=== PATIENT | female | born 1990 | race American Indian/Alaskan Native ===

== ENCOUNTER 2019-01-18 22:31 | Emergency (ER) | payer MEDICAID | END 2019-01-18 22:40 | disposition left against medical advice (07) | LOC: ED 22:31 | DX: R51 Headache (principal); Z53.21 Procedure and treatment not carried out due to patient leaving prior to being seen by health care provider ==

== ENCOUNTER 2019-03-27 12:04 | Emergency (ER) | payer MEDICAID ==
[2019-03-27 12:21] VITALS: BP 123/82
--- NOTE | 2019-03-27 12:22 | Emergency Department Report ---
Blank Doc - Documentation Documentation: 28 y/o female under care of Dr. 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 Has used 16 Pads since starting. No pain the last 2 days. No feverish or dysuria. Plan Hcg quant and cbc
[2019-03-27 13:04] LABS: Basophils # (Auto) 0.1 K/mm3 (0.0-0.1); Basophils % (Auto) 1.1 % (0.0-1.8); Eosinophils # (Auto) 0.3 K/mm3 (0.0-0.4); Eosinophils % (Auto) 3.5 % (0.0-4.3); Hematocrit 37.6 % (30.3-42.9); Hemoglobin 12.9 gm/dl (10.1-14.3); Lymphocytes # (Auto) 2.9 K/mm3 (1.2-5.4); Lymphocytes % (Auto) 36.8 % (13.4-35.0); Mean Corpuscular HGB Conc 34 % (30-34); Mean Corpuscular Volume 87 fl (79-97); Monocytes # (Auto) 0.4 K/mm3 (0.0-0.8); Monocytes % (Auto) 4.5 % (0.0-7.3); Platelet Count 201 K/mm3 (140-440); Red Blood Count 4.31 M/mm3 (3.65-5.03); Red Cell Distribution Width 15.2 % (13.2-15.2)
--- NOTE | 2019-03-27 14:35 | Ultrasound Report ---
PROCEDURE: US PELVIC COMPLETE, US TRANSVAGINAL TECHNIQUE: Transabdominal and transvaginal pelvic ultrasound. HISTORY: Vaginal bleeding. Spontaneous portion. COMPARISONS: None currently available. FINDINGS: Uterus: 8.9 x 5.9 x 7.1 cm. Heterogeneous. Lesion at the fundus measures 1.1 x 1.6 x 1.5 cm. Endometrium: Heterogeneously echogenic. 15.8 mm. Thickening. Right ovary: 2.6 x 1.8 x 2.4 cm. Hypoechoic complex cyst measures 2.1 x 1.8 x 2.0 cm. Left ovary: 3.3 x 1.8 x 2.5 cm. Mixed density complex cyst measures 1.0 x 0.7 x 1.0 cm. No adnexal lesions. No significant free fluid. IMPRESSION: * No intrauterine . * Complex cystic lesions in both ovaries. Nonspecific. Differential diagnosis does include ectopic p regnancy, corpus luteal cyst, and hemorrhagic cyst. * Thickened heterogeneous endometrium may be related to or hyperplasia. * Fibroid. This document is electronically signed by Adolfo Vo MD., March 27 2019 02:33:43 PM ET
--- NOTE | 2019-03-27 15:06 | Emergency Department Report ---
ED HPI - General Chief complaint: Vaginal Bleeding Stated complaint: BLOOD IN URINE Time Seen by Provider: 03/27/19 12:20 Source: patient Mode of arrival: Ambulatory Limitations: No Limitations - History of Present Illness Initial comments: Patient is a 28-year-old female who presents to the emergency Department with complaints of vaginal bleeding that began 4 days ago. She states that she was told at 6 weeks of she had IUFD by her FORENSIC CHEMIST Dr. Del Castillo. she states that she began having bleeding with some clots present 4 days ago. she denies any abd pain, vaginal discharge, dysuria, or fever. she states she has had a miscarriage in the past and states she had bleeding for approximately 2 days. /P:3/A:1. does not take any daily medications. - Related Data Allergies Allergy/AdvReac Type Severity Reaction Status Date / Time acetaminophen [From Vicodin] Allergy Hives Verified 03/27/19 12:06 hydrocodone [From Vicodin] Allergy Hives Verified 03/27/19 12:06 ED Review of Systems ROS: Stated complaint: BLOOD IN URINE Other details as noted in HPI Comment: All other systems reviewed and negative ED Past Medical Hx - Past Medical History Additional medical history: herniated disc - Social History Smoking Status: Current Every Day Smoker Substance Use Type: Other ED Physical Exam - General Limitations: No Limitations General appearance: alert, in no apparent distress - Head Head exam: Present: atraumatic, normocephalic - Eye Eye exam: Present: normal appearance, PERRL - ENT ENT exam: Present: mucous membranes moist - Respiratory Respiratory exam: Present: normal lung sounds bilaterally. Absent: respiratory distress, wheezes, rales, rhonchi, stridor, chest wall tenderness, accessory muscle use, decreased breath sounds, prolonged expiratory - Cardiovascular Cardiovascular Exam: Present: regular rate, normal rhythm, normal heart sounds. Absent: systolic murmur, diastolic murmur, rubs, gallop - GI/Abdominal GI/Abdominal exam: Present: soft, normal bowel sounds. Absent: distended, tenderness, guarding, rebound, rigid - Back Exam Back exam: Absent: CVA tenderness (R), CVA tenderness (L) - Neurological Exam Neurological exam: Present: alert, oriented X3 - Psychiatric Psychiatric exam: Present: normal affect, normal mood - Skin Skin exam: Present: warm, dry, intact ED Course Vital Signs 03/27/19 12:19 Temperature 98.2 F Pulse Rate 86 Respiratory 18 Rate Blood Pressure 123/82 O2 Sat by Pulse 100 Oximetry ED Medical Decision Making - Lab Data Result diagrams: 03/27/19 12:45 Lab Results 03/27/19 03/27/19 Range/Units 12:45 12:45 WBC 7.8 (4.5-11.0) K/mm3 RBC 4.31 (3.65-5.03) M/mm3 Hgb 12.9 (10.1-14.3) gm/dl Hct 37.6 (30.3-42.9) % MCV 87 (79-97) fl MCH 30 (28-32) pg MCHC 34 (30-34) % RDW 15.2 (13.2-15.2) % Plt Count 201 (140-440) K/mm3 Lymph % (Auto) 36.8 H (13.4-35.0) % [place] % (Auto) 4.5 (0.0-7.3) % Eos % (Auto) 3.5 (0.0-4.3) % Baso % (Auto) 1.1 (0.0-1.8) % Lymph # 2.9 (1.2-5.4) K/mm3 [place] # 0.4 (0.0-0.8) K/mm3 Eos # 0.3 (0.0-0.4) K/mm3 Baso # 0.1 (0.0-0.1) K/mm3 Seg Neutrophils % 54.1 (40.0-70.0) % Seg Neutrophils # 4.2 (1.8-7.7) K/mm3 HCG, Quant 404.2 H (0-4) mIU/mL - Radiology Data Radiology results: report reviewed Ordering Physician: KAE HODGE Date of Service: 03/27/19 Procedure(s): US transvaginal Accession Number(s): [id number] cc: KAE HODGE ADDENDUM ADDENDUM: Thickened heterogeneous endometrium may be related to , hyperplasia, or retained products of conception. Please correlate with bilateral spontaneous . 03/27/2019 at 1136 PT: Adolfo Johnson MD, discussed the findings over the phone with Daylin PAL. This document is electronically signed by Adolfo Marvin MD., March 27 2019 02:39:13 PM ET Addendum Transcribed By: TYM Addendum Dictated By: ADOLFO MARVIN MD Addendum Electronically Authenticated By: ADOLFO MARVIN MD Addendum Signed Date/Time: 03/27/19 1441 DD/ TD/TT: 03/27/19 PROCEDURE: US PELVIC COMPLETE, US TRANSVAGINAL TECHNIQUE: Transabdominal and transvaginal pelvic ultrasound. HISTORY: Vaginal bleeding. Spontaneous portion. COMPARISONS: None currently available. FINDINGS: Uterus: 8.9 x 5.9 x 7.1 cm. Heterogeneous. Lesion at the fundus measures 1.1 x 1.6 x 1.5 cm. Endometrium: Heterogeneously echogenic. 15.8 mm. Thickening. Right ovary: 2.6 x 1.8 x 2.4 cm. Hypoechoic complex cyst measures 2.1 x 1.8 x 2.0 cm. Left ovary: 3.3 x 1.8 x 2.5 cm. Mixed density complex cyst measures 1.0 x 0.7 x 1.0 cm. No adnexal lesions. No significant free fluid. IMPRESSION: * No intrauterine . * Complex cystic lesions in both ovaries. Nonspecific. Differential diagnosis does include ectopic , corpus luteal cyst, and hemorrhagic cyst. * Thickened heterogeneous endometrium may be related to or hyperplasia. * Fibroid. This document is electronically signed by Adolfo Marvin MD., March 27 2019 02:33:43 PM ET Transcribed By: TYM Dictated By: ADOLFO MARVIN MD Electronically Authenticated By: ADOLFO MARVIN MD Signed Date/Time: 03/27/19 1435 DD/ 40 TD/TT: 03/27/19 1354 - Medical Decision Making Patient is a 28-year-old female who presents to the emergency Department with complaints of vaginal bleeding that began 4 days ago. She states that she was told at 6 weeks of she had IUFD by her FORENSIC CHEMIST Dr. Del Castillo, she states that she kept going into her office weekly and was told no heart beat, she states that she then "stopped going." she states that she began having bleeding with some clots present 4 days ago. she denies any abd pain, vaginal discharge, dysuria, or fever. she states she has had a miscarriage in the past and states she had bleeding for approximately 2 days. /P:3/A:1. does not take any daily medications. vitals are normal. labs are normal. H/H are normal. hcg quant is 400. NO abd tenderness on exam. US shows: * No intrauterine . * Complex cystic lesions in both ovaries. Nonspecific. Differential diagnosis does include ectopic , corpus luteal cyst, and hemorrhagic cyst. * Thickened heterogeneous endometrium may be related to or hyperplasia. * Fibroid. spoke with Dr. Kapadia regarding pt and results advised to have pt have repeat qu ant in 2 days and follow up with FORENSIC CHEMIST. discussed with pt that she would need a repeat hcg quant in the next 2 days. discussed with pt that she needs to follow up with an FORENSIC CHEMIST in the next 2-3 days for further eval of her ovarian cysts. pt states "she would not be doing either of those things." advised pt strongly against that and discussed the risks of not doing so. advised to return to the ED immediately for any new or worsening symptoms. Critical care attestation.: If time is entered above; I have spent that time in minutes in the direct care of this critically ill patient, excluding procedure time. ED Disposition Clinical Impression: Spontaneous Ovarian cyst Qualifiers: Laterality: bilateral Qualified Code(s): N83.201 - Unspecified ovarian cyst, right side Disposition: TO HOME OR SELFCARE Is pt being admited?: No Does the pt Need Aspirin: No Condition: Stable Instructions: Spontaneous Miscarriage (ED), Ovarian Cyst (ED) Additional Instructions: Please follow up with an FORENSIC CHEMIST in the next 2 days. will need a repeat hcg quant in the next 2 days. today your hcg quant was 404. may come back to the emergency room for repeat if unable to see FORENSIC CHEMIST. return to the emergency room for any new or worsening symptoms. Referrals: STERLING JIMENEZ MD [Primary Care Provider] - 2-3 Days LESTER DEL CASTILLO MD [Staff Physician] - 2-3 Days [facility] [Provider Group] - 2-3 Days Time of Disposition: 15:07 Print Language: NAURUAN
== END 2019-03-27 15:23 | disposition home or self-care (01) ==
LOC: ED 12:04
DX: O03.9 Complete or unspecified spontaneous abortion without complication (principal); O26.891 Other specified pregnancy related conditions, first trimester; N83.202 Unspecified ovarian cyst, left side; N83.201 Unspecified ovarian cyst, right side; F17.200 Nicotine dependence, unspecified, uncomplicated; Z88.6 Allergy status to analgesic agent; Z3A.01 Less than 8 weeks gestation of pregnancy
CPT/HCPCS: 36415; 76830; 76856; 84702; 85025; 99284

== ENCOUNTER 2019-03-31 07:56 | Day surgery (SDC) | payer MEDICAID ==
--- NOTE | 2019-03-30 12:04 | History and Physical Report ---
History of Present Illness Date of examination: 03/29/19 Chief complaint: vaginal bleeding History of present illness: Pt is a 28 year old -[place] LMP 12/28/18 with a diagnosis of missed at 6 wks on 03/04/19 who presents for surgical management of heavy vaginal bleeding and evidence of retained products of conception on ultrasound on 03/27/19. 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: chlamydia (03/04/19), trichomonas (treated 03/04/19) Family/Genetic History: none Social history: no significant social history - Obstetrical History : 4 Para: 3 Medications and Allergies Allergies Allergy/AdvReac Type Severity Reaction Status Date / Time hydrocodone [From Vicodin] Allergy Hives , Verified 03/30/19 10:00 ABD PAIN Home Medications Medication Instructions Recorded Confirmed Last Taken Type No Known Home Medications [No 03/30/19 03/30/19 Unknown History Reported Home Medications] Review of Systems All systems: negative - Physical Exam Breasts: Positive: deferred Cardiovascular: Regular rate Lungs: Positive: Clear to auscultation Abdomen: Positive: soft Extremities: Positive: normal Results All other labs normal. Assessment and Plan A: Incomplete spontaneous Retained Products of Conception P: Proceed with suction dilation and curettage and other indicated procedures
[~2019-03-31 07:56] MED LIST: DOXYCYCLINE HYCLATE 100 MG in NACL 0.9% 250ML 250 ML IV SCH; LACTATED RINGERS 1,000 ML IV SCH; METHERGINE IM SCH
--- NOTE | 2019-03-31 09:18 | Anesthesia Consultation ---
Anesthesia Consult and Med Hx Date of service: 03/31/19 - Airway Anesthetic Teeth Evaluation: Good ROM Head & Neck: Adequate Mental/Hyoid Distance: Adequate Mallampati Class: Class II Intubation Access Assessment: Good - Pulmonary Exam CTA: Yes - Cardiac Exam Cardiac Exam: RRR - Pre-Operative Health Status ASA Pre-Surgery Classification: ASA2 Proposed Anesthetic Plan: General (Smoker , ? hyperthyoidism not on treatment yet for D and C) - Pulmonary Hx Smoking: Yes (1/3 PPD) Hx Sleep Apnea: No (TRAMAINE PRE SCREEN NEGATIVE) - Cardiovascular System Hx Hypertension: No - Central Nervous System Hx Back Pain: Yes (TO RIGHT LEG) - Endocrine Hx Hyperthyroidism: Yes (RECENT DX- BEING FOLLOWED UP) - Other Systems Hx Cancer: No
--- NOTE | 2019-03-31 09:18 | Anesthesia Day of Surgery ---
Anesthesia Day of Surgery - Day of Surgery Patient Examined: Yes Patient H&P Reviewed: Yes Patient is NPO: Yes
[2019-03-31 09:31] LABS: Basophils # (Auto) 0.1 K/mm3 (0.0-0.1); Basophils % (Auto) 1.4 % (0.0-1.8); Eosinophils # (Auto) 0.3 K/mm3 (0.0-0.4); Eosinophils % (Auto) 4.5 % (0.0-4.3); Hematocrit 35.5 % (30.3-42.9); Hemoglobin 11.8 gm/dl (10.1-14.3); Lymphocytes # (Auto) 2.5 K/mm3 (1.2-5.4); Lymphocytes % (Auto) 35.1 % (13.4-35.0); Mean Corpuscular HGB Conc 33 % (30-34); Mean Corpuscular Volume 89 fl (79-97); Monocytes # (Auto) 0.5 K/mm3 (0.0-0.8); Monocytes % (Auto) 6.5 % (0.0-7.3); Platelet Count 206 K/mm3 (140-440); Red Blood Count 4.01 M/mm3 (3.65-5.03); Red Cell Distribution Width 15.4 % (13.2-15.2)
[2019-03-31] MEDS ORDERED: CYTOTEC PR SCH (11:30)
[2019-03-31] MEDS ORDERED: DILAUDID ONE (11:57)
[2019-03-31] MEDS ORDERED: DIPRIVAN 10 MG/ML IV ONE (11:57)
[2019-03-31] MEDS ORDERED: XYLOCAINE MPF 2% ONE (11:57)
[2019-03-31] MEDS ORDERED: ZOFRAN ONE (12:40)
[2019-03-31] MEDS ORDERED: TORADOL ONE (12:41)
[2019-03-31] MEDS ORDERED: CYTOTEC PR ONE (12:50)
[2019-03-31] MEDS ORDERED: SILVER NITRATE TP ONE (12:50)
[2019-03-31] MEDS ORDERED: NACL 0.9% IR ONE (12:50)
--- NOTE | 2019-03-31 12:59 | Operative Report ---
Operative Report Operative Report: Date of Procedure: March 31, 2019 Preoperative Diagnosis: 1) Incomplete spontaneous 2) Retained Products of Conception Postoperative Diagnosis: Same Procedure: Suction Dilation and Curettage Surgeon: Rosaura Cueto MD Anesthesia: General with LMA Findings: 1) Anteverted uterus that sounded to 7 cm EBL: 250 mL Specimen: Products of conception to pathology Drains: None Medications: Methegine 0.2 mg IM and Misoprostol 800 mcg per rectum Complications: None. Counts correct x 3 Disposition: Stable to PACU Indication for Procedure: Pt is a 28 year old -[place] LMP 12/28/18 with a diagnosis of missed at 6 wks on 03/04/19 who presents for surgical management of heavy vaginal bleeding and evidence of retained products of conception on ultrasound on 03/27/19. Operation in detail: After the risks, benefits, alternatives, complications of the procedure were explained to the patient and her mother, she and her mother gave informed consent for the procedure. She was subsequently taken to the operating room with her IV noted to be running well and placed in the dorsal supine position. SCDs are noted to be in place and functioning. Her IV was noted to be running well. General anesthesia was then induced without difficulty. The patient was then placed in the dorsal lithotomy position and prepped and draped in normal sterile fashion. A timeout was performed. An exam under anesthesia revealed a small mobile anteverted uterus. A rubber catheter was used to drain the bladder of clear but concentrated urine. A bivalve speculum was placed into the vagina for adequate visualization of the cervix. A single-tooth tenaculum was placed on the anterior lip of the cervix. Uterus was then gently sounded to 7 cm. Galeana dilators were used to a #21 to dilate the cervix. A size 7 rigid cannula was then used to perform a suction curettage of the endometrial cavity. The products of conception were sent to pathology. A sharp curettage was performed until all quadrants gritty 4. The patient then received an injection of Methergine 0.2 mg IM for hemostasis. Hem ostasis was noted. At this time all insurance removed from the vagina atraumatically. She then received misoprostol 800 g per rectum. At this time the procedure was ended. The patient was placed the dorsal supine position and extubated without difficulty. She was subsequently taken to the PACU in stable condition. The patient tolerated the procedure well. All instrument and lap counts were correct 2.
--- NOTE | 2019-03-31 13:03 | Short Stay Summary ---
Short Stay Documentation Date of service: 03/31/19 - History H&P: dictated Social history: no significant social history - Allergies and Medications Current Medications: Allergies hydrocodone [From Vicodin] Allergy (Verified 03/30/19 10:00) Hives , ABD PAIN Home Medications Medication Instructions Recorded Confirmed Last Taken Type No Known Home Medications [No 03/30/19 03/30/19 Unknown History Reported Home Medications] Active Medications Lactated Ringer's (Lactated Ringers) 1,000 mls @ 100 mls/hr IV DIRECT PRIETO Last Admin: 03/31/19 09:50 Dose: 100 mls/hr Documented by: Doxycycline Hyclate 100 mg/ (Sodium Chloride) 250 mls @ 250 mls/hr IV ONCE PRIETO; Protocol Stop: 03/31/19 23:00 Methylergonovine Maleate (Methergine) 0.2 mg IM ONCE PRIETO Stop: 03/31/19 23:00 Misoprostol (Cytotec) 800 mcg IA ONCE PRIETO Stop: 03/31/19 23:00 - Physical exam Breasts: deferred - Brief post op/procedure progress note Date of procedure: 03/31/19 Pre-op diagnosis: Incomplete , Retained products of conception Post-op diagnosis: same Procedure: Suction Dilation and Curettage Anesthesia: GETA (with LMA ) Findings: 1) Small anteverted uterus that sounded to 7 cm Surgeon: LUDY CUETO Estimated blood loss: other (250 mL) Pathology: list (products of conception) Specimen disposition: to lab Condition: stable - Hospital course Hospital course: Pt underwent suction dilation and curettage which she tolerated well. She was observed in the PACU until she met discharge criteria. She will follow up in 1 week in the office with Dr Cueto. - Disposition Condition at discharge: Stable Disposition: DC-01 TO HOME OR SELFCARE - Discharge Diagnoses (1) Retained products of conception Status: Acute (2) Spontaneous Status: Acute Short Stay Discharge Plan Activity: other (Nothing in vagina x 4 wks ) Weight Bearing Status: Full Weight Bearing Diet: regular Follow up with: STERLING JIMENEZ MD [Primary Care Provider] - 7 Days LUDY CUETO MD [Staff Physician] - 7 Days (please schedule an appt on Fri04/07/19) Prescriptions: Ibuprofen [Motrin 800 MG tab] 800 mg PO Q8HR PRN #30 tablet PRN Reason: Pain, Moderate (4-6) oxyCODONE /ACETAMINOPHEN [Percocet 5/325] 1 tab PO Q6HR PRN #20 tablet PRN Reason: Pain
[2019-03-31] MEDS ORDERED: PERCOCET 5/325 PO ONE (13:10)
[2019-03-31] MEDS ORDERED: PERCOCET 5/325 ONE (13:15)
[2019-03-31 13:34] VITALS: BP 125/75
--- NOTE | 2019-03-31 16:32 | Post Anesthesia Evaluation ---
- Post Anesthesia Evaluation Patient Participated: Yes Airway Patent: Yes Stable Respiratory Function: Yes Nausea/Vomiting: No Temp > 96.8F: Yes Pain Manageable: Yes Adequeate Hydration: Yes Anesthesia Complications: No Block Receding Appropriately: Not Applicable Patient on Ventilator: No
== END 2019-03-31 14:15 | disposition home or self-care (01) ==
LOC: OR 07:56
PROVIDERS: ATTEND Obstetrics & Gynecology
DX: O03.4 Incomplete spontaneous abortion without complication (principal); E05.90 Thyrotoxicosis, unspecified without thyrotoxic crisis or storm; F32.9 Major depressive disorder, single episode, unspecified; F17.210 Nicotine dependence, cigarettes, uncomplicated; Z88.8 Allergy status to other drugs, medicaments and biological substances; Z98.890 Other specified postprocedural states; Z79.899 Other long term (current) drug therapy
CPT/HCPCS: 36415; 59812; 85025; 86850; 86900; 86901; 88305; 88341; 88342; J1170; J1885; J2405; J2704; J7050; J7120

== ENCOUNTER 2020-09-28 17:58 | Emergency (ER) | payer MEDICAID ==
[2020-09-28 18:55] VITALS: BP 121/71
--- NOTE | 2020-09-28 19:08 | Event Note ---
ED Screening Note Date of service: 09/28/20 Time: 19:07 ED Screening Note: Patient complains of dysuria and lower abdominal pain x2 days States she is about 5 months , however states she has not had any care to this point She denies any vaginal bleeding Lower abdominal pain is mild per patient This initial assessment/diagnostic orders/clinical plan/treatment(s) is/are subject to change based on patients health status, clinical progression and re- assessment by fellow clinical providers in the ED. Further treatment and workup at subsequent clinical providers discretion. Patient/guardian urged not to elope from the ED as their condition may be serious if not clinically assessed and managed. Initial orders include: Labs Ultrasound
[2020-09-28 19:35] LABS: Basophils % (Auto) 0.6 % (0.0-1.8); Eosinophils # (Auto) 0.2 K/mm3 (0.0-0.4); Eosinophils % (Auto) 3.1 % (0.0-4.3); Hematocrit 38.7 % (30.3-42.9); Hemoglobin 13.2 gm/dl (10.1-14.3); Lymphocytes # (Auto) 2.5 K/mm3 (1.2-5.4); Lymphocytes % (Auto) 31.7 % (13.4-35.0); Mean Corpuscular HGB Conc 34 % (30-34); Mean Corpuscular Volume 88 fl (79-97); Monocytes # (Auto) 0.6 K/mm3 (0.0-0.8); Monocytes % (Auto) 7.2 % (0.0-7.3); Platelet Count 198 K/mm3 (140-440); Red Blood Count 4.41 M/mm3 (3.65-5.03); Red Cell Distribution Width 14.6 % (13.2-15.2)
[2020-09-28 20:02] LABS: Alanine Aminotransferase 41 units/L (7-56); Albumin 3.8 g/dL (3.9-5); Blood Urea Nitrogen 12 mg/dL (7-17); Calcium 9.1 mg/dL (8.4-10.2); Hemolysis Index 7
[2020-09-28 20:24] LABS: Bilirubin,Urine NEG (Negative); Blood,Urine NEG (Negative); Color,Urine Yellow (Yellow); Mucus,Urine 1+ /HPF
[2020-09-28 20:34] LABS: BUN/Creatinine Ratio 17
--- NOTE | 2020-09-28 21:27 | Emergency Department Report ---
ED Female HPI - General Chief complaint: Urogenital-Female Stated complaint: YEAST INFECTION/UTI/16WKS Time Seen by Provider: 09/28/20 19:06 Source: patient Mode of arrival: Ambulatory Limitations: No Limitations - History of Present Illness Initial comments: This is a 30-year-old female 7 para 3. She states that she is about 5 months and 2 days ago she started having burning with urination off and on mildly. She denies abdominal pain, vaginal bleeding, vaginal discharge. She states she has not seen an THEATRICAL RIGGER yet. She is currently not having any pain and not reporting any symptoms. She reports a history of having of herniated disc but no other medical problems Severity scale (0 -10): 0 Improves with: none Worsens with: urination Associated Symptoms: dysuria. denies: vaginal discharge, vaginal bleeding, abdominal pain, nausea/vomiting, fever/chills, headaches, loss of appetite, hematuria, rash, seizure, shortness of breath, syncope, weakness - Related Data Previous Rx's Medication Instructions Recorded Last Taken Type Ibuprofen [Motrin 800 MG tab] 800 mg PO Q8HR PRN #30 tablet 03/31/19 Unknown Rx oxyCODONE /ACETAMINOPHEN [Percocet 1 tab PO Q6HR PRN #20 tablet 03/31/19 Unknown Rx 5/325] 21/Iron Fu/Folic Acid 1 each PO DAILY #30 tablet 09/28/20 Unknown Rx [ Complete Caplet] Allergies Allergy/AdvReac Type Severity Reaction Status Date / Time hydrocodone [From Vicodin] Allergy Hives , Verified 03/30/19 10:00 ABD PAIN ED Review of Systems ROS: Stated complaint: YEAST INFECTION/UTI/16WKS Other details as noted in HPI Comment: All other systems reviewed and negative Constitutional: denies: chills, fever, other ENT: denies: ear pain, dental pain, epistaxis Respiratory: denies: orthopnea, shortness of breath, SOB with exertion Cardiovascular: denies: palpitations, dyspnea on exertion, orthopnea, syncope, paroxysmal nocturnal dyspnea Endocrine: denies: excessive sweating, flushing, intolerance to cold, intolerance to heat, increased hunger, increased thirst, increased urine, unexplained weight gain, unexplained weight loss Gastrointestinal: denies: abdominal pain, nausea, vomiting, diarrhea, constipation, hematemesis Genitourinary: dysuria Musculoskeletal: denies: back pain Neurological: denies: headache, numbness, paresthesias, confusion Psychiatric: denies: anxiety ED Past Medical Hx - Past Medical History Previous Medical History?: Yes Hx Hypertension: No Hx HIV: No Additional medical history: herniated disc - Surgical History Additional Surgical History: D&C - Social History Smoking Status: Current Every Day Smoker - Medications Home Medications: Home Medications Medication Instructions Recorded Confirmed Last Taken Type Ibuprofen [Motrin 800 MG tab] 800 mg PO Q8HR PRN #30 tablet 03/31/19 Unknown Rx oxyCODONE /ACETAMINOPHEN [Percocet 1 tab PO Q6HR PRN #20 tablet 03/31/19 Unknown Rx 5/325] 21/Iron Fu/Folic Acid 1 each PO DAILY #30 tablet 09/28/20 Unknown Rx [ Complete Caplet] ED Physical Exam - General Limitations: No Limitations General appearance: alert, in no apparent distress - Head Head exam: Absent: atraumatic - Eye Eye exam: Present: normal appearance - ENT ENT exam: Present: normal exam, mucous membranes moist. Absent: TM's normal bilaterally - Neck Neck exam: Present: normal inspection - Respiratory Respiratory exam: Present: normal lung sounds bilaterally. Absent: respiratory distress, wheezes, rales, rhonchi - Cardiovascular Cardiovascular Exam: Present: regular rate, normal heart sounds - Rectal Rectal exam: Present: deferred - Back Exam Back exam: Present: normal inspection - Neurological Exam Neurological exam: Present: alert, oriented X3 - Psychiatric Psychiatric exam: Present: normal affect - Skin Skin exam: Present: warm, dry, intact, normal color. Absent: rash ED Course Vital Signs 09/28/20 18:52 Temperature 98.1 F Pulse Rate 95 H Respiratory 18 Rate Blood Pressure 121/71 O2 Sat by Pulse 95 Oximetry ED Medical Decision Making - Lab Data Result diagrams: 09/28/20 19:09 09/28/20 19:09 - Radiology Data Radiology results: report reviewed TRANSABDOMINAL OB PELVIC ULTRASOUND INDICATION / CLINICAL INFORMATION: Pelvic pain. COMPARISON: None available. FINDINGS: There is a single intrauterine measuring 12 weeks 5 days by crown-rump length. The heart rate is 145 bpm. The placenta is located anteriorly and is low lying without previa. There is no evidence of subchorionic hemorrhage. The cervix measures 4.9 cm in length and the internal os is closed. presentation is breech. Amniotic fluid volume is normal. A normal left ovary is present. There is a 2.1 cm corpus luteal cyst in the right ovary. No free fluid is present. IMPRESSION: 1. Single viable 12 week 5 day intrauterine without complication. 2. 2.1 cm corpus luteal cyst in the right ovary. - Medical Decision Making This is a 30-year-old female stating that she is 5 months and complaining of mild dysuria she denies vaginal bleeding no abdominal pain and no other symptoms she has not. She has not seen THEATRICAL RIGGER labs are done ultrasound shows 12 weeks 5 days single intrauterine with a heart rate of 145. Urinalysis shows no sign of infection. No acute findings and blood work. HCG quant 42008. Plan is for patient to follow-up with OB for care - Differential Diagnosis Intrauterine , UTI, Critical Care Time: No Critical care attestation.: If time is entered above; I have spent that time in minutes in the direct care of this critically ill patient, excluding procedure time. ED Disposition Clinical Impression: Normal IUP (intrauterine ) on ultrasound Qualifiers: Trimester: second trimester Qualified Code(s): Z34.92 - Encounter for supervision of normal , unspecified, second trimester Disposition: DC-01 TO HOME OR SELFCARE Is pt being admited?: No Does the pt Need Aspirin: No Condition: Stable Instructions: Before Baby Comes Home, Care, Second Trimester of Additional Instructions: The ultrasound shows that you are 12 weeks and 5 days with 1 baby. The baby's heart rate is 145. Your urine test showed no signs of infection. Please follow-up please follow-up with your THEATRICAL RIGGER of your own choice or with Dr. Aceves. Return to the emergency room immediately if you develop abdominal pain vaginal bleeding. Get plenty of rest drink 6 to 8 glasses of water per day and eat healthy nutritious meals. Take the vitamins Mannes once a day Prescriptions: 21/Iron Fu/Folic Acid [ Complete Caplet] 1 each PO DAILY #30 tablet Referrals: JOSUÉ BARBOUR MD [Primary Care Provider] - 3-5 Days KASEY ACEVES MD [Staff Physician] - 3-5 Days Time of Disposition: 21:49
--- NOTE | 2020-09-28 21:30 | Ultrasound Report ---
TRANSABDOMINAL OB PELVIC ULTRASOUND INDICATION / CLINICAL INFORMATION: Pelvic pain. COMPARISON: None available. FINDINGS: There is a single intrauterine measuring 12 weeks 5 days by crown-rump length. The he art rate is 145 bpm. The placenta is located anteriorly and is low lying without previa. There is no evidence of subchorionic hemorrhage. The cervix measures 4.9 cm in length and the internal os is clos ed. presentation is breech. Amniotic fluid volume is normal. A normal left ovary is present. There is a 2.1 cm corpus luteal cyst in the right ovary. No free flui d is present. IMPRESSION: 1. Single viable 12 week 5 day intrauterine without complication. 2. 2.1 cm corpus luteal cyst in the right ovary. Signer Name: Shankar Lai MD Signed: 09/28/2020 9:25 PM Workstation Name: [id number]
== END 2020-09-28 22:10 | disposition home or self-care (01) ==
LOC: ED 17:58
DX: O26.891 Other specified pregnancy related conditions, first trimester (principal); R30.0 Dysuria; F17.200 Nicotine dependence, unspecified, uncomplicated; Z98.890 Other specified postprocedural states; Z79.1 Long term (current) use of non-steroidal anti-inflammatories (NSAID); Z79.899 Other long term (current) drug therapy; Z88.8 Allergy status to other drugs, medicaments and biological substances; Z3A.01 Less than 8 weeks gestation of pregnancy
CPT/HCPCS: 36415; 76801; 80053; 81001; 84702; 85025

== ENCOUNTER 2021-01-22 20:46 | Outpatient (CLI) | payer MEDICAID ==
[2021-01-22 21:28] VITALS: BP 110/72
[2021-01-22] MEDS ORDERED: LACTATED RINGERS 1,000 ML IV PRN (21:55)
[2021-01-22] MEDS ORDERED: LACTATED RINGERS 500 ML IV ONE (21:57)
[2021-01-22] MEDS ORDERED: ONDANSETRON 4 MG/2 ML INJ IV PRN (22:00)
[2021-01-22] MEDS ORDERED: guaiFENesin 100 MG/5 ML ORAL LIQD PO ONE (22:57)
== END 2021-01-22 23:23 | disposition home or self-care (01) ==
LOC: TRG 20:46 → APU 20:57 → TRG 23:23
DX: O21.2 Late vomiting of pregnancy (principal); O26.893 Other specified pregnancy related conditions, third trimester; R10.9 Unspecified abdominal pain; O47.03 False labor before 37 completed weeks of gestation, third trimester; O99.513 Diseases of the respiratory system complicating pregnancy, third trimester; J45.909 Unspecified asthma, uncomplicated; O99.343 Other mental disorders complicating pregnancy, third trimester; F32.9 Major depressive disorder, single episode, unspecified; O99.333 Smoking (tobacco) complicating pregnancy, third trimester; F17.200 Nicotine dependence, unspecified, uncomplicated; Z3A.32 32 weeks gestation of pregnancy
CPT/HCPCS: 59025; 96365; J2405; J7120; 59020; 96360

== ENCOUNTER 2021-03-20 04:37 | Inpatient (IN) | payer MEDICAID ==
[2021-03-20] MEDS ORDERED: OXYTOCIN 10 UNIT/1 ML INJ IM ONE (04:45)
[2021-03-20] MEDS ORDERED: IBUPROFEN 800 MG TAB PO PRN (05:20)
[2021-03-20] MEDS: IBUPROFEN 800 MG TAB PO SCH ×3 (05:28→18:11)
--- NOTE | 2021-03-20 05:29 | History and Physical Report ---
History of Present Illness Date of examination: 03/20/21 Date of admission: 03/20/21 04:37 Chief complaint: ACTIVE LABOR. History of present illness: The patient is a 30-year-old -[place] female 6 para 4. Who is an active labor. Presented completely dilated. records are not available. Past History Past Surgical History: no surgical history Family/Genetic History: none Social history: single - Obstetrical History Expected Date of Delivery: 03/20/21 Actual Gestation: 40 Week(s) 0 Day(s) : 6 Para: 4 Hx # Term Pregnancies: 4 Number of Pregnancies: 0 Spontaneous Abortions: 1 Induced : 0 Number of Living Children: 4 Medications and Allergies Allergies Allergy/AdvReac Type Severity Reaction Status Date / Time acetaminophen [From Lortab] Allergy Unknown Verified 01/22/21 21:16 hydrocodone [From Vicodin] Allergy Hives , Verified 03/30/19 10:00 ABD PAIN Home Medications Medication Instructions Recorded Confirmed Last Taken Type Ibuprofen [Motrin 800 MG tab] 800 mg PO Q8HR PRN #30 tablet 03/31/19 Unknown Rx oxyCODONE /ACETAMINOPHEN [Percocet 1 tab PO Q6HR PRN #20 tablet 03/31/19 Unknown Rx 5/325] 21/Iron Fu/Folic Acid 1 each PO DAILY #30 tablet 09/28/20 Unknown Rx [ Complete Caplet] Active Meds: Active Medications Ibuprofen (Ibuprofen 800 Mg Tab) 800 mg PO Q8H PRN PRN Reason: Pain, Mild (1-3) Review of Systems All systems: negative - Vital Signs Vital signs: Vital Signs Pulse BP 86 141/65 03/20/21 04:45 03/20/21 04:45 Temp Pulse Resp BP Pulse Ox 84 140/84 03/20/21 05:18 03/20/21 05:18 - Physical Exam Breasts: Cardiovascular: Regular rate, Normal S1, Normal S2 Abdomen: Positive: normal appearance, soft, normal bowel sounds. Negative: distention, tenderness Vulva: both: normal Vagina: Positive: normal moisture. Negative: discharge Cervix: Negative: lesion, discharge Uterus: Positive: normal size, normal contour Adnexa: both: normal Anus/Rectum: Positive: normal perianal skin, heme negative. Negative: rectal mass, hemorrhoids Extremities: Deep Tendon Reflex Grade: Normal +2 - Obstetrical FHR: category 1 Uterine Contraction Monitor Mode: External Cervical Dilatation: 10 Cervical Effacement Percentage: 100 station: +2 Uterine Contraction Frequency (min): 3 min Uterine Contraction Duration: 1 min Uterine Contraction Pattern: Regular Uterine Tone Measurement Phase: Contraction Uterine Contraction Intensity: Strong/Firm Results All other labs normal. Assessment and Plan term with active labor.
--- NOTE | 2021-03-20 05:31 | Procedure Note ---
Date of procedure: 03/20/21 Pre-op diagnosis: term , active labor Post-op diagnosis: same Anesthesia: none Surgeon: JUAN HERNANDEZ Estimated blood loss: other (250) Specimen disposition: to lab, discarded Condition: stable Disposition: floor
[2021-03-20 05:54] LABS: Hematocrit 36.5 % (30.3-42.9); Hemoglobin 12.3 gm/dl (10.1-14.3); Mean Corpuscular HGB Conc 34 % (30-34); Mean Corpuscular Volume 85 fl (79-97); Platelet Count 234 K/mm3 (140-440); Red Blood Count 4.27 M/mm3 (3.65-5.03); Red Cell Distribution Width 14.7 % (13.2-15.2)
[2021-03-20] MEDS ORDERED: MAGNESIUM HYDROXIDE (MOM) ORAL LIQD UDC PO PRN (06:18)
[2021-03-20] MEDS ORDERED: PROMETHAZINE 25 MG TAB PO PRN (06:18)
[2021-03-20] MEDS ORDERED: PROMETHAZINE 25 MG RECT SUPP PR PRN (06:18)
[2021-03-20] MEDS ORDERED: ONDANSETRON 4 MG/2 ML INJ IV PRN (06:18)
[2021-03-20] MEDS ORDERED: LANOLIN/ZINC/DIMETHICONE (LANSINOH) 7 GM TP PRN (06:18)
[2021-03-20] MEDS ORDERED: diphenhydrAMINE 25 MG CAP PO PRN (06:18)
[2021-03-20] MEDS ORDERED: WITCH HAZEL/ GLYCERIN PAD TP PRN (06:18)
[2021-03-20] MEDS: traMADol 50 MG TAB PO PRN ×2 (11:00→18:07)
[2021-03-20 18:32] LABS: Hematocrit 33.4 % (30.3-42.9); Hemoglobin 11.1 gm/dl (10.1-14.3)
[2021-03-21] MEDS: IBUPROFEN 800 MG TAB PO SCH ×3 (00:36→12:00)
[2021-03-21] MEDS: traMADol 50 MG TAB PO PRN ×4 (06:16→23:45)
--- NOTE | 2021-03-21 09:18 | Progress Note ---
Assessment and Plan term with active labor. Subjective - Subjective Date of service: 03/21/21 Principal diagnosis: term , labor Interval history: The patient is a 30-year-old -[place] female 6 para 4. Who is an active labor. Presented completely dilated. records are not available. Patient reports: appetite normal, voiding normally, pain well controlled, ambulating normally : doing well Objective - Vital Signs Latest vital signs: Vital Signs Temp Pulse Resp BP Pulse Ox 03/21/21 07:51 97.7 F 81 18 111/78 98 03/21/21 01:05 98.5 F 94 H 20 134/82 100 03/20/21 20:11 98.0 F 95 H 18 118/78 95 03/20/21 18:07 18 03/20/21 16:18 98.0 F 81 18 119/85 100 03/20/21 12:11 97.7 F 86 20 118/72 98 03/20/21 11:00 18 Intake and Output 03/20/21 03/21/21 03/21/21 23:59 07:59 15:59 Intake Total 600 120 Output Total 600 Balance 0 120 Intake: Oral 240 120 Intake, Free Water 360 Output: Urine 600 Void 600 Other: Total, Intake Amount 240 120 Total, Output Amount 600 # Voids Void 1 1 - Exam Abdomen: Present: normal appearance, soft Uterus: Present: normal, firm Extremities: Present: normal Incision: Present: normal, dry, intact
[2021-03-22] MEDS: traMADol 50 MG TAB PO PRN (05:25)
[2021-03-22] MEDS: IBUPROFEN 800 MG TAB PO SCH ×3 (06:00→10:20)
--- NOTE | 2021-03-22 06:57 | Progress Note ---
Assessment and Plan A: day 2 S/P . P: Discharge patient home today. Discussed with patient discharge instructions and warning signs. Advised patient to continue taking her vitamins at home. Advised patient to avoid intercourse, lifting, heavy housework, and driving. Advised patient to follow up at [facility] office in 2 days. Patient voiced understanding of all instructions. Subjective - Subjective Date of service: 03/22/21 Principal diagnosis: day 2 S/P Interval history: Patient requests discharge home today. Patient reports: appetite normal, voiding normally, pain well controlled, flatus, ambulating normally, no dizzy ambulation, no nauseated [place]: doing well Objective - Vital Signs Latest vital signs: Vital Signs Temp Pulse Resp BP BP Pulse Ox 03/21/21 17:40 97.8 F 99 H 18 116/73 98 03/21/21 12:08 18 03/21/21 07:51 97.7 F 81 18 111/78 98 Intake and Output 03/21/21 03/21/21 03/22/21 15:59 23:59 07:59 Intake Total 240 Balance 240 Intake: Oral 240 Other: Total, Intake Amount 240 # Voids Void 1 1 1 - Exam Cardiovascular: Present: Regular rate Lungs: Present: Clear to auscultation Abdomen: Present: normal appearance, soft. Absent: distention, tenderness, guarding, rigidity Uterus: Present: normal, firm, fundal height below umbilicus. Absent: bogginess, tenderness Extremities: Present: normal. Absent: tenderness, edema
--- NOTE | 2021-03-22 07:00 | Discharge Summary ---
Providers - Providers Date of Admission: 03/20/21 04:37 Date of discharge: 03/22/21 Attending physician: JUAN HERNANDEZ MD Primary care physician: JUAN HERNANDEZ MD Hospitalization Reason for admission: active labor Delivery: Episiotomy: none Laceration: none Other procedures: none complications: none Discharge diagnosis: IUP at term delivered baby: male Pertinent studies: Labs Hospital course: Normal hospital course Condition at discharge: Good Disposition: DC-01 TO HOME OR SELFCARE - Discharge Diagnoses (1) Term delivered Status: Acute Plan - Provider Discharge Summary Activity: routine, no sex for 6 weeks, no heavy lifting 4 weeks, no strenuous exercise Diet: routine Instructions: routine Additional instructions: Continue taking your vitamin at home. Follow up at [facility] in 2 days. Call your doctor immediately for: * Fever > 100.5 * Heavy vaginal bleeding ( >1 pad per hour) * Severe persistent headache * Shortness of breath * Reddened, hot, painful area to leg or breast - Follow up plan Follow up: JUAN HERNANDEZ MD [Primary Care Provider] - 48 Hours
[2021-03-22] MEDS ORDERED: FLUCONAZOLE 200 MG TAB PO ONE (07:53)
[2021-03-22 12:46] VITALS: BP 139/82
== END 2021-03-22 12:10 | disposition home or self-care (01) | DRG 775 ==
LOC: LD 04:37 → OB 08:10
PROC: 10E0XZZ Delivery of Products of Conception, External Approach (ICD-10-PCS; principal; 2021-03-20)
DX: O80 Encounter for full-term uncomplicated delivery (principal); Z3A.40 40 weeks gestation of pregnancy; Z37.0 Single live birth; Z20.822 Contact with and (suspected) exposure to COVID-19; Z88.6 Allergy status to analgesic agent; Z88.8 Allergy status to other drugs, medicaments and biological substances; Z88.5 Allergy status to narcotic agent
CPT/HCPCS: 36415; 59025; 85014; 85018; 85027; 86592; 86706; 86762; 86850; 86900; 86901; 87806; 96360; 96372; G0378; J2590; U0003

== ENCOUNTER 2021-05-26 19:02 | Emergency (ER) | payer MEDICAID | END 2021-05-26 20:10 | disposition left against medical advice (07) | LOC: ED 19:02 | DX: J00 Acute nasopharyngitis [common cold] (principal); Z53.21 Procedure and treatment not carried out due to patient leaving prior to being seen by health care provider ==